=== PATIENT | female | born 1950 | race Caucasian/White ===

== ENCOUNTER 2023-03-14 07:02 | Emergency (ER) | payer MEDICARE, SELFPAY ==
[2023-03-14] VITALS (15 sets, daily range): BP systolic 78–122; BP diastolic 58–78; PULSE 49–65; RESP 8–26; O2SAT 92–99; BMI 22.6
--- NOTE | 2023-03-14 07:17 | DI.RAD.S_ITS ---
PROCEDURE: XR CHEST 1V INDICATIONS: chest pain TECHNIQUE: One view of the chest was acquired. COMPARISON: None. FINDINGS: Surgical changes and devices: None. Lungs and pleura: Lungs are clear. No pleural effusions or pneumothorax. Mediastinum: Mediastinal contours appear normal. Heart size is normal. Bones and chest wall: No suspicious bony lesions. Overlying soft tissues appear unremarkable. IMPRESSION: No acute cardiopulmonary abnormality is seen. Dictated by: Anthony Aquino M.D. on 03/14/2023 at 7:59 Approved by: Anthony Aquino M.D. on 03/14/2023 at 8:00
[2023-03-14 07:31] LABS: Add Manual Diff / Slide Review NO; Basophils Absolute Auto 100 /uL (0-100); Basophils Percent Auto 1.1 % (0-2); Eosinophils Absolute Auto 300 /uL (0-450); Eosinophils Percent Auto 4.3 % (2-4); Hematocrit 42.1 % (36-46); Hemoglobin 14.3 g/dL (12.0-16.0); Lymphocytes Absolute Auto 4100 /uL (1100-4500); Lymphocytes Percent Auto 57.4 % (25-40); Mean Corpuscular Hemoglobin 32.4 PG (26-34); Mean Corpuscular Volume 95.2 fL (80-100); Monocytes Absolute Auto 500 /uL (0-900); Neutrophils Absolute Auto 2200 /uL (1500-7000); Neutrophils Percent Auto 30.2 % (50-75); Platelet Count 252 X10^3/uL (150-400); Red Blood Cell Count 4.42 X10^6/uL (4.0-5.2); Red Cell Distribution Width 13.2 % (11.6-14.8); White Blood Cell Count 7.2 X10^3/uL (4.5-11.0)
[2023-03-14] MEDS: ASPIRIN 81 MG CHEW TAB 324 MG PO (07:37)
[2023-03-14 07:39] LABS: Prothrombin Time 10.9 SECONDS (9.4-12.5)
[2023-03-14 07:42] LABS: PTT Partial Thromboplastin Tim 28 SECONDS (25.1-36.5)
[2023-03-14 07:53] LABS: Alanine Aminotransferase 22 IU/L (<35); Albumin 4.1 g/dL (3.5-5.0); Albumin Globulin Ratio 1.4 (1.0-2.8); Alkaline Phosphatase 57 U/L (38-126); Aspartate Aminotransferase 25 IU/L (14-36); BUN Creatinine Ratio 17.7 (6-22); Bilirubin Total 0.8 mg/dL (0.2-1.3); Blood Urea Nitrogen 14 mg/dL (7-17); Calcium 10.2 mg/dL (8.4-10.2); Carbon Dioxide 23 mmol/L (22-32); Chloride 107 mmol/L (98-107); Creatine Kinase 55 U/L (30-135); Estimated Glomerular Filt Rate > 60 mL/min (>60); Globulin 2.9 g/dL (1.7-4.1); Glucose 92 mg/dL (80-110); HEMOLYSIS < 15 (0-50); Lipase 178 U/L (23-300); Potassium 4.1 mmol/L (3.4-5.1); Sodium 137 mmol/L (137-145)
[2023-03-14 08:04] LABS: Troponin I < 0.012 ng/mL (0.01-0.034)
--- NOTE | 2023-03-14 08:33 | ED_ITS ---
HPI - Chest Pain General Chief Complaint: Chest Pain Stated Complaint: chest pain, can't catch breath, lightheaded Time Seen by Provider: 03/14/23 08:33 Source: patient Mode of arrival: Ambulatory Limitations: no limitations Limitations: no limitations History of Present Illness HPI narrative: This is a 73-year-old female with history of anxiety and restless legs syndrome who presents with symptoms of lightheadedness, chest pressure and dyspnea that is started yesterday. Patient states she felt warm yesterday but no fevers that she is aware of. No diaphoresis. She states chest pressure will come and go for about 1 or 2 hours and then resolve. Nothing seems to bring it on or make it better or worse. She notes the shortness of breath does seem a little bit worse with exertion. She denies any chest pain or pressure or shortness of breath while lying flat in the bed. It has continued into today. She has not had any syncopal episodes. She states overall nothing seems to make her symptoms better or worse has not she did take an antacid which she states seemed a little bit helpful. She denies any swelling in her extremities. She has felt a little nauseated no vomiting. No diarrhea, she has had some mild constipation.. No urinary symptoms. Patient's home medications include sertraline and pramipexole, neither are new. Denies any prior surgeries. No tobacco, drinks 2 glasses of wine nightly, no recreational drugs. No long distance travel, no sitting for prolonged periods. No estrogen. Patient states no cardiac, pulmonarym, vascular or embolic family history. Related Data Allergies Allergy/AdvReac Type Severity Reaction Status Date / Time No Known Drug Allergies Allergy Verified 03/14/23 07:14 Review of Systems Review of Systems ROS Unobtainable: All systems reviewed & are unremarkable except as noted in HPI and below Patient History Social History Smoking Status: Never smoker Smoking Status: Never smoker alcohol intake frequency: 0-2 drinks per day Alcohol type: wine Substance Use Type: does not use Exam Narrative Exam Narrative: GENERAL: Alert and oriented x three, thin female in mild distress. HEENT: Head normocephalic, atraumatic, EOMI, pupils reactive, face symmetric, moist mucous membranes NECK: Supple, full range of motion CARDIOVASCULAR: Regular rate and rhythm without murmurs, rubs or gallops. No JVD. No swelling bilateral lower extremities. RESPIRATORY: Breath sounds equal bilaterally, no wheezes rales or rhonchi. No tachypnea, no accessory muscle use. ABDOMEN: Soft, nontender. Normoactive bowel sounds all 4 quadrants. No guarding or rebound, rigidity, no mass, no pulsatile mass or bruit : No CVA tenderness EXTREMITIES: Normal range of motion, no clubbing or edema. Neurovascularly intact NEUROLOGICAL: Cranial nerves II through XII grossly intact. Moving all extremities SKIN: Warm, dry, no petechiae, no rashes or lesions. Initial Vital Signs Initial Vital Signs: Vital Signs Pulse Rate 53 L 03/14/23 07:14 Respiratory Rate 18 03/14/23 07:14 Blood Pressure 106/67 03/14/23 07:14 Pulse Oximetry 92 03/14/23 07:14 Oxygen Delivery Method Room Air 03/14/23 07:14 Course Orders Ordered: ED Orders 03/14/23 09:44 CT angio chest PE protocol Stat Discontinued Medications Aspirin (Aspirin 81 Mg Chew Tab) 324 mg PO NOW ONE Stop: 03/14/23 07:18 Last Admin: 03/14/23 07:37 Dose: 324 mg Documented By: NIC Sodium Chloride (Normal Saline 0.9%) 1,000 mls @ 1,000 mls/hr IV BOLUS ONE Stop: 03/14/23 10:09 Last Infusion: 03/14/23 11:24 Dose: Infused Documented By: Admin: 03/14/23 09:31 Dose: 1,000 mls/hr Documented By: NIC Vital Signs Vital signs: Vital Signs - 8 hr 03/14/23 11:00 03/14/23 11:01 03/14/23 11:01 Pulse Rate 49 L 50 L Respiratory Rate 11 L 13 Blood Pressure 121/78 Pulse Oximetry 97 97 MDM - Chest Pain Lab Data 03/14/23 07:15 03/14/23 07:15 Labs: Lab Results 03/14/23 03/14/23 03/14/23 Range/Units 07:15 09:25 09:28 WBC 7.2 (4.5-11.0) X10^3/uL RBC 4.42 (4.0-5.2) X10^6/uL Hgb 14.3 (12.0-16.0) g/dL Hct 42.1 (36-46) % MCV 95.2 (80-100) fL MCH 32.4 (26-34) PG MCHC 34.0 (30-36) % RDW 13.2 (11.6-14.8) % Plt Count 252 (150-400) X10^3/uL Neut % (Auto) 30.2 L (50-75) % Lymph % (Auto) 57.4 H (25-40) % [place] % (Auto) 7.0 (3-14) % Eos % (Auto) 4.3 H (2-4) % Baso % (Auto) 1.1 (0-2) % Neut # (Auto) 2200 (9857-1545) /uL Lymph # (Auto) 4100 (6999-8984) /uL [place] # (Auto) 500 (0-900) /uL Eos # (Auto) 300 (0-450) /uL Baso # (Auto) 100 (0-100) /uL PT 10.9 (9.4-12.5) SECONDS INR 1.0 (0.9-1.3) APTT 28 (25.1-36.5) SECONDS D-Dimer 752 H (<500) ng/ml Sodium 137 (137-145) mmol/L Potassium 4.1 (3.4-5.1) mmol/L Chloride 107 (98-107) mmol/L Carbon Dioxide 23 (22-32) mmol/L BUN 14 (7-17) mg/dL Creatinine 0.79 (0.52-1.04) mg/dL Estimated GFR > 60 (>60) mL/min BUN/Creatinine Ratio 17.7 (6-22) Glucose 92 (80-110) mg/dL Calcium 10.2 (8.4-10.2) mg/dL Magnesium 2.0 (1.6-2.3) mg/dL Total Bilirubin 0.8 (0.2-1.3) mg/dL AST 25 (14-36) IU/L ALT 22 (<35) IU/L Alkaline Phosphatase 57 (38-126) U/L Total Creatine Kinase 55 (30-135) U/L Troponin I < 0.012 < 0.012 (0.01-0.034) ng/mL Total Protein 7.0 (6.3-8.2) g/dL Albumin 4.1 (3.5-5.0) g/dL Globulin 2.9 (1.7-4.1) g/dL Albumin/Globulin Ratio 1.4 (1.0-2.8) Lipase 178 (23-300) U/L SARS-CoV-2 (PCR) Positive H (Negative) Influenza A (RT-PCR) Flu a negative (NEGATIVE) Influenza B (RT-PCR) Flu b negative (NEGATIVE) RSV (PCR) Negative (Negative) Imaging Data Chest x-ray: Radiologist's Impression: Camryn Linda??73??F??1950 ? Allergy/Adv: No Known Drug Allergies Close Chest X-Ray (Signed) Call, - 03/14/23 Launch?[place] [address] XRay Report Signed Patient: Camryn Linda MR#: [id number] : 1950 Acct:[id number] Age/Sex: 73 / F Date of Service: 03/14/23 Loc: Accession Number: [id number] Procedure: XR chest 1V Ordering Provider: Deloris Torres D.O. PROCEDURE: XR CHEST 1V INDICATIONS: chest pain TECHNIQUE: One view of the chest was acquired. COMPARISON: None. FINDINGS: Surgical changes and devices: None. Lungs and pleura: Lungs are clear. No pleural effusions or pneumothorax. Mediastinum: Mediastinal contours appear normal. Heart size is normal. Bones and chest wall: No suspicious bony lesions. Overlying soft tissues appear unremarkable. IMPRESSION: No acute cardiopulmonary abnormality is seen. Dictated by: Anthony Aquino M.D. on 03/14/2023 at 7:59 Approved by: Anthony Aquino M.D. on 03/14/2023 at 8:00 CT scan - chest: Radiologist's Impression: Close Chest CTA (Signed) Kasey Merrill - 03/14/23 Chest X-Ray (Signed) Call,Anthony - 03/14/23 Launch?[address] [address] [address] Scan Report Signed Patient: Camryn Linda MR#: [id number] : 1950 Acct:[id number] Age/Sex: 73 / F Date of Service: 03/14/23 Loc: ED Accession Number: [id number] Procedure: CT angio chest PE protocol Ordering Provider: Deloris Torres D.O. PROCEDURE: CT ANGIO CHEST PE PROTOCOL INDICATIONS: chest pressure, sob, +dimer TECHNIQUE: After the administration of intravenous contrast, 2 mm thick sections acquired from the pulmonary apices to the posterior costophrenic angles. 3-dimensional maximum intensity projection (MIP) coronal and sagittal reformats were then acquired through the thorax. For radiation dose reduction, the following was used: automated exposure control, adjustment of mA and/or kV according to patient size. COMPARISON: None. FINDINGS: Image quality: Diagnostic. Pulmonary arteries: Pulmonary arteries are normal in size, and demonstrate no intraluminal filling defects to suggest central pulmonary embolism. Lower Neck: No enlarged lymph nodes. Thyroid: No thyroid nodules which require sonographic follow up, per consensus guidelines. Axillae: No enlarged lymph nodes. Chest Wall: Unremarkable. Bones: Unremarkable. Lungs and Pleura: No pneumothorax or pleural effusions. There is mild basilar predominant reticulonodular and ground-glass density. Heart: Heart size is normal. No pericardial effusion. Calcification of the coronary vasculature. Thoracic Vessels: No aortic aneurysm. Mediastinum and Carole: No enlarged lymph nodes. Esophagus: No wall thickening. No hiatal hernia. Upper Abdomen: Visualized upper abdomen solid organs and bowel loops appear normal. IMPRESSION: 1. No acute process. 2. No pulmonary embolus. 3. Coronary artery disease. Dictated by: Kasey Merrill M.D. on 03/14/2023 at 10:53 Approved by: Kasey Merrill M.D. on 03/14/2023 at 10:56 ECG Data Attestation: I personally reviewed and interpreted this ECG as follows: Prior ECG tracings: not available for review Interpretation: Sinus bradycardia rate of 50 [place] 140 QRS 88 QTC 417. No acute ST elevation/depression appreciated. No priors for comparison. EKG 2. Sinus bradycardia rate of 49 [place] 140 QRS 82 QTC 429. No acute ST changes appreciated. Appears similar to prior from earlier today. MDM Narrative Medical decision making narrative: 73-year-old female who presents with complaint of chest pressure, shortness of breath some nausea. Started yesterday into today, initial labs show normal white count of 7.2, hemoglobin of 14 with platelets of 252, she does have elevation of lymphocytes on her CBC. Coags are negative. Renal function electrolytes are normal with normal creatinine and BUN and a glucose of 92. LFTs are negative. Initial troponin is negative. Chest x-ray is negative for acute change. Patient is sinus bradycardic but with no obvious acute EKG changes, no priors for comparison. Discussed with patient ACS seems less likely source but symptoms have been on and off since yesterday troponin was repeated along with EKG. Repeat troponin is negative, no significant EKG changes appreciated. Patient does not have lot of high-risk factors but D-dimer was included. Dimer is elevated just above age adjusted cutoff. CT angio was obtained which is negative. Patient states she is felt warm, she has had some chest pressure and shortness of breath so COVID/RSV/influenza swab was sent as well. Patient did test positive for COVID. She notes she did an infection a month ago there is potential that this could be persistent positive as it is PCR versus new infection. Discharge Plan Departure Patient Disposition: Home Clinical Impression: Chest pain, COVID-19 virus infection Instructions: DI for Atypical Chest Pain Activity Restrictions/Additional Instructions: Please follow up for recheck. You did test positive for COVID today. Rest of your workup was overall negative except for your CT angio does show changes consistent with coronary artery disease. It would be appropriate to follow up with your physician for further workup as needed. Please return for new or worsening symptoms, worsening chest pain or pressure, lightheadedness or passing out, increasing shortness of breath, new swelling of extremities or other new or concerning changes. Stand Alone Forms: Patient Portal/API
--- NOTE | 2023-03-14 09:17 | PC.NURSE ---
pt had a low B/P reading and C/O dizzines so she use a commode to void. B/P retaken and within normal range.
[2023-03-14 09:24] LABS: D Dimer 752 ng/ml (<500)
[2023-03-14] MEDS: SODIUM CHLORIDE 0.9% 1,000 ML 1000 ML IV (09:31)
--- NOTE | 2023-03-14 09:44 | DI.CT.S_ITS ---
PROCEDURE: CT ANGIO CHEST PE PROTOCOL INDICATIONS: chest pressure, sob, +dimer TECHNIQUE: After the administration of intravenous contrast, 2 mm thick sections acquired from the pulmonary apices to the posterior costophrenic angles. 3-dimensional maximum intensity projection (MIP) coronal and sagittal reformats were then acquired through the thorax. For radiation dose reduction, the following was used: automated exposure control, adjustment of mA and/or kV according to patient size. COMPARISON: None. FINDINGS: Image quality: Diagnostic. Pulmonary arteries: Pulmonary arteries are normal in size, and demonstrate no intraluminal filling defects to suggest central pulmonary embolism. Lower Neck: No enlarged lymph nodes. Thyroid: No thyroid nodules which require sonographic follow up, per consensus guidelines. Axillae: No enlarged lymph nodes. Chest Wall: Unremarkable. Bones: Unremarkable. Lungs and Pleura: No pneumothorax or pleural effusions. There is mild basilar predominant reticulonodular and ground-glass density. Heart: Heart size is normal. No pericardial effusion. Calcification of the coronary vasculature. Thoracic Vessels: No aortic aneurysm. Mediastinum and Carole: No enlarged lymph nodes. Esophagus: No wall thickening. No hiatal hernia. Upper Abdomen: Visualized upper abdomen solid organs and bowel loops appear normal. IMPRESSION: 1. No acute process. 2. No pulmonary embolus. 3. Coronary artery disease. Dictated by: Kasey Merrill M.D. on 03/14/2023 at 10:53 Approved by: Kasey Merrill M.D. on 03/14/2023 at 10:56
[2023-03-14 09:58] LABS: Troponin I < 0.012 ng/mL (0.01-0.034)
[2023-03-14 10:13] LABS: Influenza A - CEPHEID Flu A NEGATIVE (NEGATIVE); Influenza B - CEPHEID Flu B NEGATIVE (NEGATIVE); Respiratory Syncytial Virus Negative (Negative)
[2023-03-14 10:16] LABS: COVID-19 CEPHEID 4-PLEX PCR POSITIVE (Negative)
== END 2023-03-14 11:35 | disposition home or self-care (01) ==
PROVIDERS: Emergency Provider Emergency Medicine
DX: U07.1 COVID-19 (principal); R07.9 Chest pain, unspecified
CPT/HCPCS: 0241U; 36415; 71045; 71275; 80053; 82550; 83690; 83735; 84484; 85025; 85379; 85610; 85730; 93005; 96360; 96361; 99284; Q9967